=== PATIENT | female | born 1985 | race Caucasian/White ===

== ENCOUNTER 2016-11-19 11:17 | Emergency (ER) | payer OTHER, BC ==
--- NOTE | 2016-11-19 12:57 | ERNOTE ---
Trauma/Assault HPI - Narrative Date of Service: 11/19/16 - General Stated Complaint: FALL AT WORK Time Seen by Provider: 11/19/16 12:50 Source: patient, RN notes reviewed Exam Limitations: no limitations - Immun/Allergies/Home Medications Immunizations: IMMUNIZATION HX Immunizations Up to Date No History of Influenza Vaccine No Allergies/Adverse Reactions: Allergies Influenza Virus Vaccines Adverse Reaction (Intermediate, Verified 11/19/16 11:34 ) Vomiting Home Medications: HOME MEDICATIONS Omeprazole [Prilosec] 20 mg PO DAILY 11/19/16 [Last Taken Unknown] - History of Present Illness Date (Duration): 11/19/16 Narrative: 31 y/o female ambulatory to the ED using one crutch for injuries d/t a fall on her way into her work today. She lost her footing and fell outside the building. She reports pain in her left knee. 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 She also reports soreness in her left neck/shoulder region. 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 She has had issues with instability and patellar subluxation in the left knee in the past. She was seen by orthopedics and reports that she was just told to lose weight. Location Occurred: Reports: work Pain Location: Reports: lower extremity Method of Injury: Reports: fall Severity: mild Modifying Factors - (Improves): Reports: cold therapy, immobilization Modifying Factors - (Worsens): Reports: movement Loss of Consciousness: Reports: no loss of consciousness Associated Symptoms - Trauma: Reports: trouble walking, neck pain. Denies: headache, confusion, dizziness, lightheadedness, seizures, slurred speech, vision changes, chest pain, shortness of breath, abdominal pain, nausea, vomiting, muscle spasms Review of Systems - Review of Systems Constitutional: Present: no symptoms reported EYE: Present: see HPI ENT: Present: no symptoms reported Respiratory: Absent: shortness of breath, cough Cardiology: Absent: chest pain, syncope Gastrointestinal/Abdominal: Absent: nausea, vomiting, abdominal pain Genitourinary: Absent: other - possible Musculoskeletal: Present: muscle pain, muscle stiffness, neck pain, joint pain, joint swelling Skin: Absent: rash, lesions, lumps, change in color Neurological: Absent: headache, dizziness/light-headedness, weakness, numbness, tingling Endocrine: Present: no symptoms reported Hematologic/Lymphatic: Absent: easy bruising, easy bleeding Psych: Present: no symptoms reported - Patient's Past Medical History Patient History - Medical: GERD Patient History - Cardiac/Respiratory: No pertinent hx Patient History - Cancer: No Hx of Cancer Patient History - Surgical Procedures: Other Patient History - Other: None LMP (females 10-50): 1 month - Family History Mother Family History - Medical: Diabetes Type 2 Family History - Cardiac/Respiratory: Hypertension - Social History Living Situations: home Abuse History: No History of abuse Psych History: No pertinent hx Smoking Status: Never smoker Alcohol Use: none Drug Use: none - Immunizations Immunizations Up to Date: No History of Influenza Vaccine: No Physical Exam - Physical Exam General Appearance: Present: wd/wn, alert, no apparent distress, obese Neck: Present: normal inspection, supple, full range of motion, tender lateral - left. Absent: tender posterior midline Respiratory: Present: no respiratory distress, normal breath sounds, no accessory muscle use, lungs clear Cardiovascular/Chest: Present: regular rate, rhythm, no murmur, normal peripheral pulses Extremity Exam: Present: normal except -, decreased range of motion - left knee , mildly limited flexion, joint swelling - mild diffuse, left knee. Absent: extremity edema Neurological Exam: Present: alert, oriented, normal mood/affect, no motor/ sensory deficits Skin Exam: Present: normal color, warm/dry ED Progress - Vital Signs Patient's Vital Signs:: I have reviewed the patient's vital signs. Vital Signs: Vital Signs 11/19/16 11:24 Temperature 37.1 C Pulse Rate 76 Respiratory 16 Rate Blood Pressure 153/89 O2 Sat by Pulse 100 Oximetry - X-Ray X-Ray #1 X-Ray: knee Interpretation: Reviewed by me X-ray Comments: Technique: Left knee series (3 views) Comparison:None. Findings: No acute fracture or dislocation. There is slight lateral patellar tilt, which can be seen with a lateral patellar tracking abnormality. Alignment is otherwise unremarkable. Mineralization is normal. No significant degenerative change. No destructive osseous lesions. Joint spaces are maintained. Small suprapatellar joint effusion. Suggestion of soft tissue swelling in the region of Hoffa's fat pad and deep infrapatellar recess; correlate for underlying patellar tendinosis and/or bursitis. Soft tissue swelling overlying the patella noted. Impression: No acute osseous findings. Additional findings and comments are as above. Electronically signed by Marin Franco D.O.. 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 RIC wrap applied to knee. To be seen in occupational health for follow up. Departure Clinical Impression: Fall Qualifiers: Encounter type: initial encounter Qualified Code(s): W19.XXXA - Unspecified fall, initial encounter Contusion of knee, left Qualifiers: Encounter type: initial encounter Qualified Code(s): S80.02XA - Contusion of left knee, initial encounter - Departure Disposition: Home Follow Up Needed Condition: Good Instructions: Knee Pain Additional Instructions: See occupational health sheet for instructions and work restrictions Referrals: Elzbieta Shafer FNP [[facility]] -
[2016-11-19 13:36] VITALS: BP 127/63
--- OUTSIDE RECORDS SUMMARY | 2016-11-19 13:40 | XMS REPORT | Continuity of Care Document ---
:1985 Demographics Phone Unavailable Preferred Language Unknown Marital Status Unknown Advent Affiliation Unknown Race Unknown Ethnic Group Unknown Author Organization [facility] ([facility]) [place] [address] Phone [phone] Care Team Providers Name Role Phone Unavailable Primary Care Provider Unavailable Source Comments This disclosure is being made pursuant to the Care Everywhere program, applicable federal and state laws, and may not contain all informaitonavailable regarding this patient.[facility] ([facility]) Active Allergies and Adverse Reactions Not on File Current Medications Not on file Active Problems Not on file Social History Tobacco Use Types Packs/Day Years Used Date Never Assessed Plan of Care Health Maintenance Due Date Last Done Comments Hepatitis B Vaccine (1 of 3 - Primary Series) 1985 Tdap Vaccine 1996 Lipid Disorder Screening 2003 MMR Vaccine 2003 Td Vaccine 2003 Varicella Vaccine (1 of 2 - Adult - No Evidence of 2003 Immunity) Cervical Cancer Screening 2015 Influenza Vaccine: Seasonal (#1) 04/05/2016 Results from Last 3 Months Not on file
== END 2016-11-19 13:30 | disposition home or self-care (01) ==
LOC: ER 11:17
DX: S80.02XA Contusion of left knee, initial encounter (principal); W18.39XA Other fall on same level, initial encounter; Y93.89 Activity, other specified; Y92.69 Other specified industrial and construction area as the place of occurrence of the external cause; Y99.0 Civilian activity done for income or pay; K21.9 Gastro-esophageal reflux disease without esophagitis